=== PATIENT | female | born 1990 | race Caucasian/White ===

== ENCOUNTER 2018-09-27 03:37 | Inpatient (IN) | payer BC ==
--- NOTE | 2018-09-27 06:54 | US ---
Biophysical profile: Multiple real-time images were obtained. Comparison: No previous study. Dates: Current ultrasound: SUKH 10/22/18, gestational age 36 weeks 3 days presentation: Cephalic Placenta: Right lateral with no findings of abruption Amniotic fluid: TANISHA 12.50 cm Measurements: BPD: 8.89 cm - 36 weeks 0 days Head circumference: 31.90 cm - 36 weeks 0 days Abdominal circumference: 32.90 cm - 36 weeks 6 days Femur length: 7.11 cm - 36 weeks 4 days Estimated weight: 2960 g (6 lbs. 8 oz.), estimated weight at the 56 percentile for age by current ultrasound Heart rate: 120 BPM Cervical length: 4.5 cm Biophysical profile: movement 0, breathing movement 0, tone 0, amniotic fluid volume 2 Impression: 1. Single intrauterine fetus currently cephalic in presentation. Dates as noted above. 2. 2 out of 8 on biophysical profile. Diagnostic code #5
--- NOTE | 2018-09-27 07:28 | PCM.PREANE ---
Preanesthetic Assessment - Anesthesia/Transfusion/Family Hx Anesthesia History: Prior Anesthesia Without Reaction Family History of Anesthesia Reaction: No Transfusion History: No Prior Transfusion(s) Intubation History: Unknown - Review of Systems General: No Symptoms Pulmonary: No Symptoms Cardiovascular: No Symptoms Gastrointestinal: No Symptoms (GERD), Constipation, Nausea Neurological: No Symptoms (vertigo), Dizziness (from prior ear surgery) Other: Reports: None - Physical Assessment NPO Status Date: 09/26/18 NPO Status Time: 00:01 Pulse: 86 O2 Sat by Pulse Oximetry: 98 Respiratory Rate: 16 Blood Pressure: 134/86 Temperature: 37.1 C Vital Signs: Last Vital Signs Temp 37.1 C 09/27/18 04:46 Pulse 86 09/27/18 04:46 Resp 16 09/27/18 04:46 BP 134/86 09/27/18 04:46 Pulse Ox 98 09/27/18 04:46 Height: 1.65 m Weight: 118.388 kg ASA Class: 2 - Allergies Allergies/Adverse Reactions: Allergies Allergy/AdvReac Type Severity Reaction Status Date / Time Latex, Natural Rubber Allergy Rash Verified 09/27/18 05:12 - Anesthesia Plan Pre-Op Medication Ordered: None - Acknowledgements Anesthesia Type Planned: Spinal Pt an Appropriate Candidate for the Planned Anesthesia: Yes Alternatives and Risks of Anesthesia Discussed w Pt/Guardian: Yes Pt/Guardian Understands and Agrees with Anesthesia Plan: Yes
[2018-09-27] MEDS ORDERED: Sodium Chloride 0.9% 10 ML Syringe FLUSH PRN (07:45)
[2018-09-27] MEDS ORDERED: Metoclopramide 10 MG/2 ML SDV IVPUSH ONE (07:45)
[2018-09-27] MEDS ORDERED: Citric Acid/Sodium Citrate Solution 30 ML Cup PO ONE (07:45)
[2018-09-27] MEDS ORDERED: Bupivacaine 0.5% 30 ML SDV ONE (07:46)
[2018-09-27] MEDS ORDERED: Oxytocin 10 Units/1 ML SDV ONE (07:50)
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
[2018-09-27] MEDS ORDERED: ceFAZolin 1 GM Vial ONE ×2 (07:55→07:56)
[2018-09-27] MEDS ORDERED: Ondansetron 4 MG/2 ML SDV ONE (07:57)
[2018-09-27] MEDS ORDERED: Morphine PF 10 MG/10 ML SDV ONE (07:57)
[2018-09-27] MEDS ORDERED: Lactated Ringers 1,000 ML ONE (08:04)
[2018-09-27] MEDS: Lactated Ringers 1,000 ML IV SCH ×2 (08:06→08:26)
[2018-09-27] MEDS ORDERED: Scopolamine 1.5 MG Transdermal Patch TRDERM ONE (08:17)
[2018-09-27] MEDS ORDERED: Phenylephrine 1% 10 MG/ML SDV ONE (08:56)
[2018-09-27] MEDS ORDERED: Ondansetron 4 MG/2 ML SDV IVPUSH PRN (09:03)
[2018-09-27] MEDS ORDERED: diphenhydrAMINE 50 MG/ML SDV IVPUSH PRN ×2 (09:03→10:56)
[2018-09-27] MEDS ORDERED: Ketorolac 30 MG/ML SDV ONE (09:26)
--- NOTE | 2018-09-27 10:02 | PCM.POSTAN ---
POST ANESTHESIA ASSESSMENT - MENTAL STATUS Mental Status: Alert, Oriented - VITAL SIGNS Pulse Rate: 80 SaO2: 97 Resp Rate: 15 Blood Pressure: 106/58 Temperature: 97.3 C - RESPIRATORY Respiratory Status: Respiratory Rate WNL, Airway Patent, O2 Saturation Stable - CARDIOVASCULAR CV Status: Pulse Rate WNL, Blood Pressure Stable - GASTROINTESTINAL GI Status: No Symptoms - POST OP HYDRATION Hydration Status: Adequate & Stable
--- NOTE | 2018-09-27 10:04 | PCM.OPNOTE ---
- General Post-Op/Procedure Note Date of Surgery/Procedure: 09/27/18 Operative Procedure(s): Repeat lower uterine segment transverse section with bilateral salpingectomy through Pfannenstiel skin incision Findings: Baby is in a vertex presentation. Amniotic fluid appeared decreased but was clear. Uterus tubes and ovaries were consistent with normal term . Baby weighed 3050 g (6 lbs. 12 oz.) scores were 8 and 9. Baby was born at 0910 hrs. on 09/27/2018. Pre Op Diagnosis: 1. 37-3/7 week intrauterine . 2. Nonreassuring testing (biophysical profile score 4/10). 3. Back and abdominal pain status post fall in the shower earlier this a.m. 4. History of previous section 2. 5. Insistence on bilateral salpingectomy at the time of C- section Post-Op Diagnosis: Same Anesthesia Technique: Spinal Other Anesthesia Type: Working 0.5%20 mL local Primary Surgeon: Moises Azul Secondary Surgeon: John Rangel Anesthesia Provider: Marely Robbins Snow Plow Tractor Operator: Sharyn García Reason Snow Plow Tractor Operator Was Necessary: Retraction, assistance, patient safety, quality of care. Pathology: Placenta Output, Urine Amount: 200 EBL in mLs: 500 Drain/Tube Comments:: Indwelling bladder catheter Complications: None Condition: Good Free Text/Narrative:: Surgery duration: Surgery duration: Procedure: The patient is appropriately consented. Patient was transferred to the room and placed in a sitting position. Spinal anesthesia was administered. After confirmation of adequate anesthesia patient was placed in a supine position with a wedge under her right side to facilitate left lateral positioning. The patient was prepped and draped in usual fashion after Easton catheter was already placed . The anesthetic was checked and found to be adequate. 20 mL of Marcaine 0.5% was injected locally in the Pfannenstiel incision site. The Pfannenstiel skin incision was then made and carried down through skin, subcutaneous and fascial layers. The fascia was then undermined superiorly and inferiorly to allow for adequate operating room. The recti muscles midline and preperitoneal fat was bluntly dissected. Peritoneal cavity was entered longitudinally. The vesicouterine peritoneum was then incised transversely and bladder flap was developed. Myometrium was incised transversely to the level of the amniotic sac. Anterior lower uterine segment myometrium was very thin at more than 2 mm thick in some places. This incision was extended bilaterally in a blunt fashion. The amniotic sac was then ruptured resulting in clear amniotic fluid. A hand is placed in the low uterine segment and the baby's head was brought forth through the incision. The baby was completely delivered using fundal pressure in a routine fashion. The nose and mouth were bulb suctioned. Baby's cord was clamped x2 cut and baby was handed off to attending legal records manager Dr renner. Placenta was expressed after cord blood was obtained. Uterus was then exteriorized to allow for easier closure. The cervix was assessed and found to be dilated adequately to allow egress of blood. The uterus was closed in 2 layers. The first layer a running locked suture of 0 Monocryl, the second layer a running locked vertical mattress suture of 0 Monocryl. Sponge instrument needle counts are correct. Bilateral salpingectomy was accomplished in usual fashion using Enseal vessel closure system. Both tubes were sent for histologic evaluation. Small paratubal cyst was removed on the patient's right side. The uterus was returned to the abdominal cavity and lateral gutters were cleared of blood. Once again sponge needle counts are correct. The anterior abdominal wall was closed with a #1 PDS suture from angle to angle. The subcutaneous area was found to be free of any bleeders. interrupted sutures of 3 -0 Monocryl were used to reapproximate the subcutaneous layer. Skin was closed with a running subcuticular stitch of 3-0 Monocryl in a vertical mattress suture fashion using a Angel needle. Prineo mesh/glue was then applied to further approximate the incision. It should be noted that patient received 2 g of Ancef preoperatively for infection prophylaxis and had Pitocin infused after delivery of the placenta to facilitate uterine contraction. She also had sequential compression stockings in place for DVT prophylaxis. Patient was discharged from the operating room in satisfactory condition.
[2018-09-27] MEDS ORDERED: Lanolin 100% Cream 7 GM Tube TOP PRN (10:56)
[2018-09-27] MEDS ORDERED: Dextrose 5%-Lactated Ringers 1,000 ML IV SCH (10:56)
[2018-09-27] MEDS ORDERED: Naloxone 0.4 MG/ML SDV IVPUSH PRN (10:56)
[2018-09-27] MEDS ORDERED: Zolpidem 5 MG Tab PO PRN (10:56)
[2018-09-27] MEDS ORDERED: Ondansetron 4 MG/2 ML SDV IV PRN (10:56)
[2018-09-27] MEDS ORDERED: ePHEDrine 50 MG/ML SDV IVPUSH PRN (10:56)
--- NOTE | 2018-09-27 10:59 | PCM48HPAN ---
Post Anesthesia Note - EVALUATION WITHIN 48HRS OF ANESTHETIC Vital Signs in Normal Range: Yes Patient Participated in Evaluation: Yes Respiratory Function Stable: Yes Airway Patent: Yes Cardiovascular Function Stable: Yes Hydration Status Stable: Yes Pain Control Satisfactory: Yes Nausea and Vomiting Control Satisfactory: Yes Mental Status Recovered: Yes - COMMENTS/OBSERVATIONS Free Text/Narrative:: pt resting quietly, VVS, no c/o, block receding-able to feel temperature.
[2018-09-27] MEDS: Simethicone 80 MG Tab.Chew PO SCH ×3 (12:35→21:07)
[2018-09-27] MEDS: Docusate Sodium 100 MG Cap PO PRN (15:47)
[2018-09-27] MEDS: Ibuprofen 800 MG Tab PO SCH ×2 (15:47→23:55)
[2018-09-28] MEDS: Acetaminophen 325 MG Tab PO PRN ×3 (04:33→19:01)
[2018-09-28] MEDS: Ibuprofen 800 MG Tab PO SCH ×2 (07:44→15:45)
[2018-09-28] MEDS: Docusate Sodium 100 MG Cap PO PRN (07:47)
[2018-09-28] MEDS: Simethicone 80 MG Tab.Chew PO SCH ×4 (09:12→22:19)
--- NOTE | 2018-09-28 09:38 | PCM48HPAN ---
Post Anesthesia Note - EVALUATION WITHIN 48HRS OF ANESTHETIC Vital Signs in Normal Range: Yes Patient Participated in Evaluation: Yes Respiratory Function Stable: Yes Airway Patent: Yes Cardiovascular Function Stable: Yes Hydration Status Stable: Yes Pain Control Satisfactory: Yes Nausea and Vomiting Control Satisfactory: Yes Mental Status Recovered: Yes
--- NOTE | 2018-09-28 21:57 | PCM.SN ---
- Free Text/Narrative Note: note: Postoperative day one Patient is doing well in the period. Minimal lochia, voiding well, ambulated without problems. Nursing without concerns. Patient is afebrile, vital signs are stable Abdomen is flat, soft, uterus is below the umbilicus and is firm and nontender. Incision intact, dry. No evidence of hematoma, seroma or infection. Legs are nontender. Minimal edema. Assessment: /post recovery going well. Plan: Routine care. Patient be discharged home within the next 24- 48 hours.
[2018-09-28] MEDS: Acetaminophen/oxyCODONE 325-5 MG Tab PO PRN (22:17)
[2018-09-29] MEDS: Ibuprofen 800 MG Tab PO SCH ×2 (00:04→07:40)
--- NOTE | 2018-09-29 06:27 | PCM.DCSUM1 ---
Discharge Summary - Hospital Course Free Text/Narrative:: Dyan is a 28-year-old 3 now para 3003 white female who was admitted on 09/27/2018 for complaints of pain after falling in her shower at just after midnight on that day. She had pain in her left back, left flank and right uterine incision incision scar area. She is evaluated with biophysical profile which showed score of 2/8. Only points were for adequate amniotic fluid. Because of this concern and a gestational age of 37-3/7 weeks' recommendation was to proceed to immediate section. Patient was somewhat concerned about this recommendation. She had planned on having a bilateral salpingectomy at the time of repeat section which had been scheduled for 10/11/2018 at [facility] in [place]. The patient threatened to leave AMA to go to [place] to be evaluated and have her section and bilateral salpingectomy there. Because of this and because of my discomfort with allowing her to do this to doing her bilateral salpingectomy at this facility. She was appropriately consented for a repeat section with bilateral salpingectomy. Patient was taken to surgery emergently for this. At the time of surgery patient was noted to have decreased amniotic fluid which was clear. She delivered a 3050 g (6 lbs. 6 oz. infant with Apgars of 8 and 9 at 0910 hrs. on . Preoperative diagnosis: 1. 37-3/7 week intrauterine . 2. Nonreassuring testing. 3. Back and abdominal pain status post fall/trauma. 4. History of previous section 2. 5. Insistence on bilateral salpingectomy at time of with threats to leave AMA if not able to achieve this. after section patient had an unremarkable recovery. Incision is dry, intact and without evidence of hematoma seroma or an. Patient made good bowel, bladder, ambulatory activity recovery. She is breast-feeding. She is taking ibuprofen for pain control. She is ready for discharge home. We'll follow up with Dr. Rodas at [facility]. Diagnosis: Stroke: No - Discharge Data Discharge Date: 09/29/18 Discharge Disposition: Home, Self-Care 01 Condition: Good - Patient Summary/Data Operative Procedure(s) Performed: Repeat lower uterine segment transverse section with bilateral salpingectomy through Pfannenstiel skin incision - Patient Instructions Diet: Regular Diet as Tolerated (Nursing diet and increase calories calcium is recommended) Activity: As Tolerated (No lifting greater than 15 pounds or driving a car 1 week. No intercourse or tampons until seen back.) Driving: Do Not Drive Showering/Bathing: May Shower Wound/Incision Care: Keep Operative Site/Wound Site Clean and Dry Notify Provider of: Fever, Increased Pain, Swelling and Redness, Drainage, Nausea and/or Vomiting - Discharge Plan *PRESCRIPTION DRUG MONITORING PROGRAM REVIEWED*: No Home Medications: Home Meds Acetaminophen/oxyCODONE [Percocet 325-5 MG] 2 tab PO Q4H PRN tablet 09/29/18 [ Rx] Ibuprofen [Motrin] 800 mg PO Q8H tablet 09/29/18 [Rx] Referrals: Onelia Guerrero MD [Primary Care Provider] - [facility] - Discharge Summary/Plan Comment DC Time >30 min.: No Discharge Summary/Plan Comment: Discharge instructions: 1. Discharge home 2. Diet, activity and follow-up discussed with patient. Recommend nursing diet with increased calories and calcium. 3. Precautions given concern increased pain, bleeding, temperature, signs/ symptoms of DVT/PE. 4. Medications per home medication was printed, discussed with and given to the patient. 5. [place]. Diagnosis: 1. Term [id number] post repeat section with bilateral salpingectomy Condition: Good - Patient Data Vitals - Most Recent: Last Vital Signs Temp 36.6 C 09/29/18 04:25 Pulse 84 09/29/18 04:25 Resp 16 09/29/18 04:25 BP 117/74 09/29/18 04:25 Pulse Ox 99 09/29/18 04:25 Weight - Most Recent: 118.388 kg I&O - Last 24 hours: Intake & Output 09/28/18 09/28/18 09/29/18 14:59 22:59 06:59 Output Total 250 300 Balance -250 -300 Lab Results - Last 24 hrs: Laboratory Results - last 24 hr 09/27/18 09/28/18 Range/Units 08:00 05:25 WBC 12.38 H (3.98-10.04) K/mm3 RBC 3.41 L (3.98-5.22) M/mm3 Hgb 8.6 L D (11.2-15.7) gm/L Hct 27.1 L (34.1-44.9) % MCV 79.5 (79.4-94.8) fl MCH 25.2 L (25.6-32.2) pg MCHC 31.7 L (32.2-35.5) g/dl RDW Std Deviation 43.0 (36.4-46.3) fL Plt Count 196 (182-369) K/mm3 MPV 11.4 (9.4-12.3) fl Neut % (Auto) 70.1 (34.0-71.1) % Lymph % (Auto) 20.4 (19.3-51.7) % [place] % (Auto) 7.5 (4.7-12.5) % Eos % (Auto) 1.5 (0.7-5.8) Baso % (Auto) 0.2 (0.1-1.2) % Neut # (Auto) 8.67 H (1.56-6.13) K/mm3 Lymph # (Auto) 2.53 (1.18-3.74) K/mm3 [place] # (Auto) 0.93 H (0.24-0.36) K/mm3 Eos # (Auto) 0.18 (0.04-0.36) K/mm3 Baso # (Auto) 0.03 (0.01-0.08) K/mm3 RPR Non-reactive (NONREACTIVE) Med Orders - Current: Current Medications Acetaminophen (Tylenol) 650 mg PO Q4H PRN PRN Reason: Pain Last Admin: 09/28/18 19:01 Dose: 650 mg Diphenhydramine HCl (Benadryl) 25 mg IVPUSH Q6H PRN PRN Reason: Itching or Nausea Docusate Sodium (Colace) 100 mg PO Q12H PRN PRN Reason: Constipation Last Admin: 09/28/18 07:47 Dose: 100 mg Emollient Ointment (Lansinoh Hpa) 0 gm TOP ASDIRECTED PRN PRN Reason: Sore Nipples Last Admin: 09/27/18 21:08 Dose: 1 applic Ephedrine Sulfate (Ephedrine Sulfate) 5 mg IVPUSH SEECOMMENT PRN PRN Reason: Other Ibuprofen (Motrin) 800 mg PO Q8H COUNTS INCLUDE 234 BEDS AT THE [facility] Last Admin: 09/29/18 00:04 Dose: Not Given Naloxone HCl (Narcan) 0.1 mg IVPUSH SEECOMMENT PRN PRN Reason: Respiratory Depression Ondansetron HCl (Zofran) 4 mg IV Q4H PRN PRN Reason: Nausea/Vomiting Oxycodone/Acetaminophen (Percocet 325-5 Mg) 2 tab PO Q4H PRN PRN Reason: Pain (moderate 4-6) Last Admin: 09/28/18 22:17 Dose: 2 tab Simethicone (Simethicone) 160 mg PO QID COUNTS INCLUDE 234 BEDS AT THE [facility] Last Admin: 09/28/18 22:19 Dose: 160 mg Zolpidem Tartrate (Ambien) 5 mg PO BEDTIME PRN PRN Reason: Insomnia Discontinued Medications Bupivacaine HCl (Marcaine 0.5%) Confirm Administered Dose 30 ml .ROUTE .STK-MED ONE Stop: 09/27/18 07:47 Last Admin: 09/27/18 09:04 Dose: 20 ml Cefazolin Sodium (Ancef) Confirm Administered Dose 1 gm .ROUTE .STK-MED ONE Stop: 09/27/18 07:56 Cefazolin Sodium (Ancef) Confirm Administered Dose 1 gm .ROUTE .STK-MED ONE Stop: 09/27/18 07:57 Citric Acid/Sodium Citrate (Bicitra Solution) 30 ml PO ONETIME ONE Stop: 09/27/18 07:46 Last Admin: 09/27/18 08:01 Dose: 30 ml Diphenhydramine HCl (Benadryl) 25 mg IVPUSH Q6H PRN PRN Reason: pruritis Lactated Ringer's (Ringers, Lactated) 1,000 mls @ 125 mls/hr IV ASDIRECTED COUNTS INCLUDE 234 BEDS AT THE [facility] Last Admin: 09/27/18 08:26 Dose: 125 mls/hr Lactated Ringer's (Ringers, Lactated) Confirm Administered Dose 1,000 mls @ as directed .ROUTE .STK-MED ONE Stop: 09/27/18 08:05 Dextrose/Lactated Ringer's (Dextrose 5%-Lactated Ringers) 1,000 mls @ 125 mls/ hr IV ASDIRECTED ELIAS Stop: 09/27/18 18:55 Last Admin: 09/27/18 12:34 Dose: 125 mls/hr Ketorolac Tromethamine (Toradol) Confirm Administered Dose 30 mg .ROUTE .STK- MED ONE Stop: 09/27/18 09:27 Metoclopramide HCl (Reglan) 10 mg IVPUSH ONETIME ONE Stop: 09/27/18 07:46 Last Admin: 09/27/18 08:02 Dose: 10 mg Miscellaneous Information (Remove Patch) 1 ea TRDERM ONETIME ONE Stop: 09/27/18 08:31 Miscellaneous Information (Remove Patch) 1 ea TRDERM ONETIME ONE Stop: 09/30/18 08:31 Morphine Sulfate (Duramorph Pf) Confirm Administered Dose 10 mg .ROUTE .STK-MED ONE Stop: 09/27/18 07:58 Ondansetron HCl (Zofran) Confirm Administered Dose 4 mg .ROUTE .STK-MED ONE Stop: 09/27/18 07:58 Ondansetron HCl (Zofran) 4 mg IVPUSH ONETIME PRN PRN Reason: Nausea/Vomiting Oxytocin (Pitocin) Confirm Administered Dose 20 unit .ROUTE .STK-MED ONE Stop: 09/27/18 07:51 Phenylephrine HCl (Mahin-Synephrine) Confirm Administered Dose 10 mg .ROUTE .STK- MED ONE Stop: 09/27/18 08:57 Scopolamine (Transderm-Scop) 1.5 mg TRDERM ONETIME ONE Stop: 09/27/18 08:18 Last Admin: 09/27/18 08:35 Dose: 1.5 mg Sodium Chloride (Saline Flush) 10 ml FLUSH ASDIRECTED PRN PRN Reason: Keep Vein Open
[2018-09-29] MEDS: Simethicone 80 MG Tab.Chew PO SCH (09:52)
[2018-09-29] MEDS: Acetaminophen/oxyCODONE 325-5 MG Tab PO PRN (09:52)
== END 2018-09-29 14:20 | disposition home or self-care (01) | DRG 540 ==
LOC: JD.OBCHECK 03:37 → JD.OB 03:37 → JD.OBCHECK 07:45
PROVIDERS: ADMIT Obstetrics & Gynecology; ATTEND Obstetrics & Gynecology
PROC: 10D00Z1 Extraction of Products of Conception, Low, Open Approach (ICD-10-PCS; principal; 2018-09-27)
PROC: 0UT70ZZ Resection of Bilateral Fallopian Tubes, Open Approach (ICD-10-PCS; 2018-09-27)
DX: O34.211 Maternal care for low transverse scar from previous cesarean delivery (principal); O76 Abnormality in fetal heart rate and rhythm complicating labor and delivery; Z37.0 Single live birth; Z3A.37 37 weeks gestation of pregnancy; Z30.2 Encounter for sterilization
CPT/HCPCS: 01961; 36415; 59025; 76816; 76818; 76818-26; 85025; 86592; 86850; 86900; 86901; A9270-GY; J0690; J1885; J2270; J2370; J2405; J2590; J2765; J3490; J7042; J7120